=== PATIENT | male | born 1990 | race Caucasian/White ===

== ENCOUNTER 2017-07-11 10:34 | Emergency (ER) | payer SELFPAY ==
[~2017-07-11] VITALS: Ht 162.6 cm; Wt 61.0 kg
[2017-07-11] MEDS ORDERED: TRAMADOL 50MG TABLET PO ONE (11:30)
[2017-07-11] MEDS ORDERED: IBUPROFEN 400MG TABLET PO ONE (11:30)
[2017-07-11 12:16] VITALS: BP 108/74
== END 2017-07-11 12:22 | disposition home or self-care (01) ==
LOC: ER 11:09
DX: R07.89 Other chest pain (principal); Z88.0 Allergy status to penicillin
CPT/HCPCS: 93005; 99283; Z7610

== ENCOUNTER 2021-02-08 00:10 | Emergency (ER) | payer SELFPAY ==
[~2021-02-08] VITALS: Ht 160 cm; Wt 71.0 kg
[2021-02-08 00:22] VITALS: BP 117/79
[2021-02-08 00:50] LABS: CLARITY URINE CLEAR (CLEAR); COLOR URINE YELLOW (YELLOW); KETONES URINE NEGATIVE (NEGATIVE); LEUKOCYTE ESTERASE URINE NEGATIVE (NEGATIVE); NITRITE URINE NEGATIVE (NEGATIVE); OCCULT BLOOD URINE NEGATIVE (NEGATIVE); PH URINE 6.5 (4.5-8.0); PROTEIN URINE NEGATIVE (NEGATIVE); SPECIFIC GRAVITY URINE 1.021 (1.005-1.030)
[2021-02-08] MEDS ORDERED: CLOT24CR TP (00:56)
[2021-02-08] MEDS ORDERED: NAPR-681 PO (00:56)
== END 2021-02-08 01:21 | disposition home or self-care (01) ==
LOC: ER 00:10
DX: M54.41 Lumbago with sciatica, right side (principal); N48.1 Balanitis
CPT/HCPCS: 81003; 99283